=== PATIENT | male | born 1980 | race Caucasian/White ===

== ENCOUNTER 2020-12-21 09:29 | Outpatient (REF) | payer OTHER, SELFPAY ==
[2020-12-21 09:52] LABS: COVID-19 Test Negative (Negative); IDNOW Serial# 55D5AD1C
== END 2020-12-21 09:30 | disposition home or self-care (01) ==
LOC: HO.EMPCOV 09:29
PROVIDERS: Visit Provider Internal Medicine
DX: Z20.822 Contact with and (suspected) exposure to COVID-19 (principal)
CPT/HCPCS: 36415; 87635; C9803

== ENCOUNTER 2021-02-07 10:50 | Outpatient (REF) | payer OTHER, SELFPAY ==
--- NOTE | ~2021-02-07 | XR_ITS ---
EXAMINATION: XR knee standing BI, XR knee LT 2V CLINICAL INFORMATION: Reason for Exam M25.569 - Pain in unspecified knee COMPARISON: No prior studies available for comparison. TECHNIQUE: Bilateral frontal standing, left lateral and patella sunrise view. FINDINGS: BONES: No fracture or dislocation is present. JOINTS: Mild narrowing of joint spaces medially suggest mild DJD. SOFT TISSUE: Normal XR/XR knee standing BI IMPRESSION: Mild degenerative osteoarthritis. No joint effusion.
--- NOTE | ~2021-02-07 | XR_ITS ---
EXAMINATION: XR knee standing BI, XR knee LT 2V CLINICAL INFORMATION: Reason for Exam M25.569 - Pain in unspecified knee COMPARISON: No prior studies available for comparison. TECHNIQUE: Bilateral frontal standing, left lateral and patella sunrise view. FINDINGS: BONES: No fracture or dislocation is present. JOINTS: Mild narrowing of joint spaces medially suggest mild DJD. SOFT TISSUE: Normal XR/XR knee LT 2V IMPRESSION: Mild degenerative osteoarthritis. No joint effusion.
== END 2021-02-07 10:51 | disposition home or self-care (01) ==
LOC: HO.HOSX 10:50
PROVIDERS: Visit Provider Orthopaedic Surgery
DX: M23.92 Unspecified internal derangement of left knee (principal)
CPT/HCPCS: 73560; 73565; 99202

== ENCOUNTER 2021-02-13 12:42 | Outpatient (REF) | payer OTHER, SELFPAY ==
--- NOTE | ~2021-02-13 | MR_ITS ---
EXAMINATION: MR KNEE WITHOUT CONTRAST, LEFT CLINICAL INFORMATION: Left knee pain. COMPARISON: Radiographs 02/07/2021. TECHNIQUE: MRI of the knee without contrast was performed using routine sequences on a high-field scanner. FINDINGS: MENISCI: Medial Meniscus: Small oblique undersurface tear at the junction of the body and posterior horn with prominent intrameniscal fluid extending peripherally. Lateral Meniscus: Minimal inner margin blunting/fraying at the junction of the body and posterior horn. LIGAMENTS: Cruciate: Intact. Collateral: Intact. EXTENSOR MECHANISM: Intact. ARTICULAR CARTILAGE/BONE: Patellofemoral Compartment: Cartilage thinning and surface irregularity throughout the central trochlea. Medial Compartment: Peripheral cartilage thinning of the tibia medially. Lateral Compartment: Mild cartilage thinning and irregularity of the posterior non-weightbearing femoral condyle. JOINT FLUID AND BURSAE: No significant joint effusion. MR/MR knee LT wo con IMPRESSION: Minimal inner margin blunting/fraying of the lateral meniscus at the junction of the body and posterior horn. Small oblique undersurface tear of the medial meniscus at the junction of the body and posterior horn with prominent intrameniscal fluid extending peripherally. Mild tricompartmental osteoarthritis.
== END 2021-02-13 12:43 | disposition home or self-care (01) ==
LOC: HO.MRI 12:42
PROVIDERS: Visit Provider Orthopaedic Surgery
DX: M23.92 Unspecified internal derangement of left knee (principal)
CPT/HCPCS: 73721

== ENCOUNTER → 2021-02-21 08:30 | Outpatient (BNVA) | payer OTHER, SELFPAY | PROVIDERS: PCP Internal Medicine; Visit Provider Orthopaedic Surgery ==

== ENCOUNTER 2021-03-06 06:12 | Day surgery (SDC) | payer OTHER, SELFPAY ==
[2021-02-28 10:17] VITALS: BMI 26.6
--- NOTE | 2021-03-05 08:48 | P.CONAN_ITS ---
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 Allergies Allergy/AdvReac Type Severity Reaction Status Date / Time SEASONAL ALLERGIES Allergy Intermediate SNEEZING, Uncoded 02/28/21 10:15 STUFFY NOSE Home Medications Medication Instructions Recorded Confirmed Last Taken Type fluticasone propionate 50 1 spray INTRANASAL DAILY 02/07/21 02/28/21 03/06/21 05:15 History mcg/actuation nasal spray,suspension Exam Exam Date and Time: March 05, 2021 0848 Height,Weight and Vital Signs: Height 5 ft 9 in Weight 81.647 kg Assessment and Plan Assessment Anesthesia Assessment: Chart Reviewed Documented by User: Taina Traylor 03/06/21 07:52 [facility] Past Medical History Medical History Internal derangement of left knee Surgical History Surgical History H/O left knee surgery Hx of wisdom tooth extraction Jaw fracture Social History Social History Advance Directives Information Provided: No Current occupational status: employed 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 Allergies Allergy/AdvReac Type Severity Reaction Status Date / Time SEASONAL ALLERGIES Allergy Intermediate SNEEZING, Uncoded 02/28/21 10:15 STUFFY NOSE Home Medications Medication Instructions Recorded Confirmed Last Taken Type fluticasone propionate 50 1 spray INTRANASAL DAILY 02/07/21 02/28/21 03/06/21 05:15 History mcg/actuation nasal spray,suspension Exam Airway Mallampati Class: II TM Dist: >3cm Neck ROM: Full Loose/Missing/Broken Teeth: No Heart: RRR Lungs: CTA Assessment and Plan Assessment Anesthesia Assessment: Anesthesia Plan Discussed and Chart Reviewed Final Anesthetic Review NPO: Yes ASA Class: II Final Preanesthetic Review: Meds/Allgs Chart Reviewed, Consent Obtained/Reviewed and Anes Risks/Benef Reviewed Patient Risk: Low Procedure Risk: Low Anesthetic Plan Anesthetic Plan: GA Disposition: Standard PACU
[2021-03-06] VITALS (12 sets, daily range): BP systolic 110–126; BP diastolic 67–80; PULSE 60–84; RESP 16–18; TEMP 36.6; O2SAT 95–100
[2021-03-06] MEDS: Lactated Ringers 1,000 ML 100 ML IVCONT (06:45)
--- NOTE | 2021-03-06 07:29 | MHC.SHP ---
Pre-Procedural Eval Section A The patient is an INPATIENT: No Changes since office visit: Yes Patient answered all questions; No Cold of Flu in the past 2 weeks, No New Medical Problems and No Changes in Medication The History & Physical has been completed within 30 days and I have reviewed it.: Yes Section B Chief Complaint: internal derangement of left knee Allergies: Allergies Allergy/AdvReac Type Severity Reaction Status Date / Time SEASONAL ALLERGIES Allergy Intermediate SNEEZING, Uncoded 02/28/21 10:15 STUFFY NOSE Plan I have reviewed the history and physical and performed a pertinent physical examination on my patient. No changes have occurred unless specified.
--- NOTE | 2021-03-06 08:35 | P.OP_ITS ---
Operative Note Operative Note Date of Service: 03/06/21 Narrative: Date of Service: 03/06/21 Pre-op diagnosis: right knee medial meniscus tear Post-op diagnosis: same Procedure: right knee partial medial meniscectomy Implants: none Surgeon: Subhash Grant MD Anesthesia: GETA Was an Field Assembly Supervisor used for this Procedure?: No Estimated blood loss (mL): 5 IV fluids (mL): 600 Pathology: none sent Condition: stable Disposition: PACU Procedure in detail: Patient was brought to the operating room placed supine on the arthroscopic table and prepped and draped in standard sterile fashion. A time-out was called to identify proper site proper procedure proper surgeon and IV antibiotics per weight were administered. I began by exsanguinating the limb and insufflating tourniquet to 300 mm Hg. Then made a standard anterolateral stab incision. The knee was insufflated with saline and a 30 degree arthroscope was placed. There was grade 1 changes to the medial patelalr facet with clean suprapatellar pouch and the gutters were clean. There was a central trochlear full thickness catilag e leasion extending about 1.5 cm anterior to posterio and 5 mm wice. There was no associated kissing lesion. I descended into the medial compartment where I made my medial portal under direct visualization. There was as radial complex tear of the posterior horn of the medial meniscus. Root was intact and there were no cartilage lesions. I used a combination of biter and shaver and cautery to remove unstable portions of the meniscus. Approximately 25% meniscal volume was removed. Once I was happy with this the ACL was examined and found to be intact and the lateral compartment also was without the need for intervention. There was no evidence of meniscal damage. I then removed all instrumentation and closed the portals with skin glue. 25 mL of 2% Marcaine with epinephrine was injected into the joint and the surrounding soft tissues. Patient was then placed in sterile dressing extubated brought recovery room stable condition. There were no known complications.
[2021-03-06] MEDS: Acetaminophen 325 MG TABLET 650 MG PO (09:06)
[2021-03-06] MEDS: fentaNYL citrate/PF 100 MCG/2 ML VIAL 25 MCG IVPUSH ×4 (09:08→09:23)
[2021-03-06] MEDS: HYDROcodone Bit/Acetam 5/325 TABLET 1 TAB PO (09:19)
== END 2021-03-06 10:50 | disposition home or self-care (01) ==
PROVIDERS: Visit Provider Orthopaedic Surgery
PROC: (CPT 29870; principal; 2021-03-06 07:30)
DX: S83.231A Complex tear of medial meniscus, current injury, right knee, initial encounter (principal); X58.XXXA Exposure to other specified factors, initial encounter; Y93.9 Activity, unspecified; Y92.9 Unspecified place or not applicable; Y99.8 Other external cause status; J30.2 Other seasonal allergic rhinitis; Z79.51 Long term (current) use of inhaled steroids
CPT/HCPCS: 29881; J0171; J0690; J1100; J1885; J2250; J2405; J3010

== ENCOUNTER → 2021-03-18 08:44 | Outpatient (BNVA) | payer OTHER, SELFPAY | PROVIDERS: Visit Provider Physician Assistant ==

== ENCOUNTER 2021-05-16 16:00 | Outpatient (RCR) | payer OTHER, SELFPAY ==
--- NOTE | 2021-03-21 14:55 | MHC.PT.EP ---
[facility] [place] Office [place] Office [place] Office [address] Carolann Herring [address] [phone] F: [phone] F: [phone] F: [phone] F: [phone] Physical Therapy Plan of Care Date of Evaluation: Date of Surgery: 03/06/21 Diagnosis: L partial medial meniscectomy on 03/06 Assessment: pt presents to physical therapy status-post partial medial meniscectomy. pt presents to physical therapy with pain, decreased range of motion, decreased strength, impaired functional mobility, impaired postural awareness, and gait deviations. pt is a good candidate for skilled PT due to age, potential remediation of impairments, typical disease/condition progression and prognosis, comorbidities, and motivation. pt would benefit from tailored strengthening and stretching exercise program, functional training, gait training, postural re-training, neuromuscular re-education, modalities as needed for pain, equipment safety demonstration. Frequency and Duration: The patient will be seen 2x/wk for 6 wks Short Term Goals: pt will be I w/ HEP to promote self-management of condition. pt will improve L knee flexion to 120 degrees to normalize gait pattern on even ground. Sugarcane Research Technician Goals: pt will report a statistically significant improvement in self-reported outcome measure, LEFI, to promote return to PLOF. pt will report <1/10 L knee pain w/ ambulation on even ground w/ LRAD >2500' to promote full return to community ambulation. Treatment Plan: Modalities to reduce pain, spasms and effusion. Manual therapy to restore motion and function. Therapeutic exercise to improve strength and flexibility. Neuromuscular re-education for posture and balance. Therapeutic activities to return to functional activities of daily living. Electronically signed by: Naty Kumari PT, DPT Please sign and return to therapist. Thank you for your referral.
--- NOTE | 2021-05-16 17:07 | MHC.PT.DC ---
[facility] [place] Office [place] Office [place] Office [address] Carolann Herring [address] [facility] [phone] F: [phone] F: [phone] F: [phone] F: [phone] Physical Therapy Discharge Report Diagnosis: L partial medial meniscectomy on 03/06 Date of Surgery: 03/06/21 Date of Evaluation: 03/21/21 Date of Discharge: 05/16/21 Treatments to Date: 13 Cancellations to Date: 0 No Shows to Date: 0 Discharge Status: Achieved Goals Independent with HEP Discharge Summary: The patient overall reports reduced frequency and intensity of knee pain. He has improved significantly in his ability to tolerate higher level dynamic lower extremity strengthening. He has achieved all goals established at the initial evaluation. The patient is independent with his home exercise program. He is discharged from this physical therapy plan of care to his home exercise program. Electronically signed by: Naty Kumari PT, DPT Please sign and return to therapist. Thank you for your referral.
== END 2021-05-16 17:07 | disposition home or self-care (01) ==
LOC: HO.PT 16:00
PROVIDERS: PCP Internal Medicine; Visit Provider Physician Assistant
DX: M23.92 Unspecified internal derangement of left knee (principal); Z98.890 Other specified postprocedural states
CPT/HCPCS: 97035; 97110; 97112; 97140; 97161; 97530

== ENCOUNTER 2024-06-01 09:53 | Outpatient (AMB) | payer OTHER, SELFPAY ==
[2024-06-01 09:56] VITALS: BP 122/68; PULSE 70; BMI 26.7
--- NOTE | 2024-06-01 09:56 | MHC.OFFVIS ---
Vital Signs 06/01/24 09:56 Height 5 ft 9 in Weight 180 lb 12.465 oz BMI 26.7 BP 122/68 Blood Pressure Location Lt brachial Position Sitting Pulse 70 Intake Visit Reasons: [employer]NA[employer]/Dr. 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 He is a 43-year-old male who used to be in at [employer] in his high school and college years. More recently due to knee issues he has not been as active as before. Although he said he continues to participate in monitoring biking after physical therapy. He has been only recently during this spring he started noticing on his smart watch that his heart rate responses pretty excessive to exercise. He said he would very rapidly go high and then he had would take a longer time for him to recover. He said when he was in good shape is resting heart rate used to be in the 50s. Currently is resting heart rate is in his 70s. He denies any actual symptoms with it. Denies any exertional chest pain or shortness of breath. Denies any lightheadedness, syncope. Denies any heart failure symptoms. He said occasionally when he is stressed out and anxious at rest his heart rate also races. [facility] Medical History Internal derangement of left knee Surgical History Hx of wisdom tooth extraction H/O left knee surgery Jaw fracture Family History Father No problems noted. 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 [employer] Review of Systems Const Denies chills, Denies daytime sleepiness, Denies fatigue, Denies fever(s), Denies frequent falls, Denies poor appetite, Denies snoring, Denies stops breathing during sleep, Denies weakness, Denies weight gain and Denies weight loss Eyes Denies loss of vision ENT Denies dizziness and Denies hearing loss Card Denies chest pain, Denies claudication, Denies leg edema, Denies lightheadedness, Denies palpitations, Denies dyspnea, Denies dyspnea on exertion and Denies orthopnea Resp Denies cough, Denies excessive phlegm production, Denies dyspnea, Denies dyspnea on exertion, Denies snoring and Denies wheezing GI Denies abdominal pain, Denies hematochezia, Denies change in bowel habits, Denies nausea and Denies vomiting Denies dysuria and Denies urinary frequency Musc Denies arthralgias, Denies muscle weakness, Denies numbness and Denies other (frequent falls) Skin/Breast Denies nail changes and Denies rash Neuro Denies Abnormal speech present, Denies dizziness, Denies frequent falls, Denies loss of vision, Denies memory loss, Denies numbness and Denies weakness Psych Denies depression and Denies memory loss Endo Denies fatigue and Denies palpitations Gabino/Lymph Reports easy bruising and Reports other (anemia) Aller/Immun Denies wheezing Physical Exam Vital Signs: Last Vital Signs Pulse 70 06/01/24 09:56 BP 122/68 06/01/24 09:56 BMI result Body Mass Index 26.7 Const General: cooperative, comfortable, no acute distress, alert, awake, Physically active and well groomed Nutritional Appearance: average body habitus Orientation/consciousness: patient oriented x3 Limitations: no limitations HEENT Head: Yes normocephalic and Yes atraumatic Neck Neck: Yes trachea midline, Yes supple and Yes no JVD Resp Effort & Inspection: normal respiratory effort Auscultation: clear to auscultation bilaterally Cardio Jugular venous distension: no JVD Palpation: normal PMI Rate: regular rate Rhythm: regular rhythm Heart sounds: S1 normal heart sound present, S2 normal heart sound present, no click, no gallops, no murmurs and no rubs GI Auscultation: normal bowel sounds Skin General skin exam: no rashes or lesions noted Neuro General: patient oriented x3 and no focal motor deficits Speech: No Abnormal speech present Extrem General: Yes no clubbing, cyanosis or edema Office Procedures EKG Details: EKG shows normal sinus rhythm with sinus arrhythmia with minimal voltage criteria for LVH overall normal EKG [id number], Complete Assessment & Plan Assessment & Plan (1) Tachycardia: Code(s): R00.0 - Tachycardia, unspecified Category: Medical Plan: Patient with excessive heart rate response to exercise and prolonged recovery time without any obvious cardiac symptoms. Possible etiologies include deconditioning with impaired vagal tone, relative hypovolemia with reduced oral fluid intake or case of mild autonomic dysfunction with either inappropriate sinus tachycardia and/or a component of postural orthostatic tachycardia syndrome. Currently has no symptoms of lightheadedness at this point time. I would suggest a Holter monitor as well as echocardiogram to further assess for any structural abnormality and overall evaluate heart rate response throughout the day. We discussed in details about participating in gradually increasing cardiovascular witnessed to improve his heart rate response to exercise and also improve his vagal tone and heart rate recovery time. This was discussed in details. He understands agrees. Also advised him to aggressively hydrate every day to maintain adequate heart rate response. Will follow up in the clinic if need be. Thank you for allowing me to partake in his care Orders: Orders CA echo transthoracic complete Today R00.0 - Tachycardia, unspecified ECG 3 day holter monitor Today R00.0 - Tachycardia, unspecified Coding Level of Care Code New Pt Level 4 (36732) Diagnoses Tachycardia R00.0 CPT Codes EKG - CPT: 60663-[id number], Complete ([id number])
== END 2024-06-01 10:30 | disposition home or self-care (01) ==
PROVIDERS: PCP Internal Medicine; Visit Provider Internal Medicine Cardiovascular Disease
DX: R00.0 Tachycardia, unspecified (principal)
CPT/HCPCS: 93010; 99204

== ENCOUNTER → 2024-06-01 09:53 | Outpatient (BNVA) | payer OTHER, SELFPAY | PROVIDERS: PCP Internal Medicine; Visit Provider Internal Medicine Cardiovascular Disease | DX: R00.0 Tachycardia, unspecified (principal) | CPT/HCPCS: 93005 ==

== ENCOUNTER → 2024-07-18 10:00 | Outpatient (REF) | payer OTHER, SELFPAY ==
--- NOTE | 2024-07-18 10:06 | HM_ITS ---
* Total monitoring time 3 days. * Underlying rhythm is sinus with an average rate of 74/Min. * Rare supraventricular and one isolated ventricular ectopic beat. * No significant pauses or AV blocks. * Patient marker used once in association with sinus rhythm. * Rapid/fast heartbeat in patient diary correlates with sinus rhythm. MTDD
--- NOTE | 2024-07-18 10:06 | CA_ITS ---
Transthoracic Echocardiogram Patient (Last, First, Middle): Axel Sheets J Gender: Male Date of : 1980 Age: 43 Procedure Date: 07/18/2024 Procedure Type: Transthoracic Echocardiogram Location: OP Height: 175.26 cm Weight: 83.46 kg BSA: 1.99 m2 Heart Rate: bpm BP: 124 / 80 mmHg Spring Tacker: JOY Referring MD: Rm Kirk MD Director [employer]: Rm Kirk MD Symptoms: R00.0 - Tachycardia, unspecified Study Quality: Adequate ECG Rhythm: Sinus Conclusions: - Essentially normal study Findings Left Ventricle Normal left ventricular size, thickness, and systolic function. The visually estimated ejection fraction is between 60-65%. Spectral Doppler is indicative of a normal filling pattern. Right Ventricle Normal right ventricular cavity size and systolic function. Atria Both atria are normal in size. There is lipomatous hypertrophy of the interatrial septum. There is no evidence of interatrial shunt. Aortic Valve Normal aortic valve structure and function. There is no aortic valve stenosis. There is no aortic valve regurgitation. Mitral Valve Normal mitral valve structure and function. There is trace mitral valve regurgitation. There is no mitral valve stenosis. Pulmonic Valve The pulmonic valve is likely normal. Tricuspid Valve Normal tricuspid valve structure. There is trace tricuspid valve regurgitation. The right ventricular systolic pressure is normal. The right ventricular systolic pressure is 19 mmHg. Normal right atrial pressure. There is no evidence of pulmonary hypertension. Great Vessels All visible segments of the aorta are normal in size. The pulmonary artery was not well visualized. There is no dilatation of the ascending aorta measuring 2.70 cm. Venous The inferior vena cava is normal in size and collapses greater than 50% with inspiration. Pericardium/Pleural There is no evidence of pericardial effusion. Prior Study Comparison No prior study available for comparison. Measurements 2D Linear Measurements IVSd: 0.78 0.6-0.9/0.6-1.0 cm LVIDd: 4.56 3.9-5.3/4.2-5.9 cm LVIDd Index: 2.29 2.4-3.2/2.2-3.1 cm/m2 LVIDs: 3.05 2.0-3.6 cm LVPWd: 0.79 0.7-1.1 cm Ao Root: 2.50 2.1-3.5 cm LA Diam: 3.60 2.7-3.8/3.0-4.0 cm LAIDs Index: 1.81 1.5-2.3 cm/m2 LV Mass: 140.48 67-162/88-224 g LV Mass Index: 70.59 43-95/49-115 g/m2 LVOT Diam: 2.00 3.0+(-)1.3 cm Mitral Valve MV Pk E: 0.66 MV PK A: 0.48 MV Decel Time: 206.00 E/A: 1.40 E'Lateral: 13.60 E'Medial: 10.90 E/E' Med: 6.00 E/E' Lat: 4.80 PHT: 60.00 MVA PHT: 3.67 Decel Harmon: 3.18 Aortic Valve AoV Pk Mario: 1.12 AoV Mn Mario: 0.78 AoV VTI: 0.27 AoV Pk Grad: 5.00 Aov Mn Grad: 3.00 KRISTA Cont.VTI: 2.41 LVOT LVOT Pk Mario: 0.94 LVOT Mn Mario: 0.61 LVOT VTI: 0.21 LVOT Pk Grad: 4.00 LVOT Mn Grad: 2.00 LVOT Diam: 2.00 LVOT Area: 3.14 Diastolic Function MV Pk E: 0.66 MV Pk A: 0.48 E/A: 1.40 E'Medial: 10.90 E/E' Med: 6.00 E' Laterial: 13.60 E/E' Lat: 4.80 Tricuspid Valve TR Pk Mario: 1.58 TR Pk Grad: 10.00 RA Press: 3.00 RVSP: 19.00 Great Vessels Aorta Ao Root-2D: 2.50 2.0-3.7 cm Ao Asc: 2.70 2.1-3.4 cm Pulmonary Valve PV Pk Mario: 1.17 Peak PV Grad: 5.00 Updated in Other Vendor System with Status of Final Rm Kirk MD electronically signed on 07/19/2024 8:51:32 AM with status of Final
== END ==
LOC: HO.CARD 10:00
PROVIDERS: PCP Internal Medicine; Visit Provider Internal Medicine Cardiovascular Disease
DX: I47.10 Supraventricular tachycardia, unspecified (principal)
CPT/HCPCS: 93242; 93306

== ENCOUNTER → 2024-07-18 10:06 | Outpatient (BNV) | payer OTHER, SELFPAY | PROVIDERS: PCP Internal Medicine; Visit Provider Internal Medicine Cardiovascular Disease | DX: I47.10 Supraventricular tachycardia, unspecified (principal) | CPT/HCPCS: 93244; 93306 ==

== ENCOUNTER 2024-12-16 08:44 | Outpatient (REF) | payer OTHER, SELFPAY ==
[2024-12-16 09:16] LABS: MANUAL DIFF FLAG NO
[2024-12-16 09:44] LABS: Basophils Absolute Auto 0.1 X10*3/uL (0.0-0.2); Basophils Percent Auto 1.1 % (0-2); Eosinophils Absolute Auto 0.1 X10*3/uL (0.0-0.4); Eosinophils Percent Auto 1.3 % (0-4); Hematocrit 41.2 % (42.0-52.0); Hemoglobin 14.4 g/dl (14.0-18.0); Imm Gran Abs Auto 0.03 X10*3/uL (0.00-0.03); Imm Gran Pct Auto 0.6 % (0.0-0.4); Lymphocytes Absolute Auto 0.9 X10*3/uL (1.2-4.9); Lymphocytes Percent Auto 20.1 % (20-40); Mean Corpuscular Hemoglobin 30.2 pg (27.0-33.0); Mean Corpuscular Volume 86.4 fL (80.0-98.0); Mean Platelet Volume 10.7 fL (9.4-12.4); Monocytes Absolute Auto 0.5 X10*3/uL (0.1-1.2); Monocytes Percent Auto 10.2 % (2-11); Neutrophils Absolute Auto 3.1 x10*3/uL (2.0-8.3); Neutrophils Percent Auto 66.7 % (45-73); Platelet Count 158 X10*3/uL (160-400); Red Blood Count 4.77 X10*6/uL (4.60-5.80); Red Cell Distribution Width 13.2 % (11.0-16.0); White Blood Count 4.6 X10*3/uL (4.8-10.8)
[2024-12-16 10:14] LABS: C Reactive Protein 0.53 mg/dL (< or = 0.50)
[2024-12-16 10:16] LABS: Erythrocyte Sedimentation Rate 6 MM/HR (0-15)
[2024-12-16 10:20] LABS: Rheumatoid Factor < 13.0 IU/mL (<15.0)
[2024-12-20 13:54] LABS: Anti Nuclear Antibody Screen NEGATIVE (NEGATIVE)
[2024-12-20 15:28] LABS: Cyclic Citrullinated Peptide <16 UNITS
[2024-12-23 00:29] LABS: Parvovirus B19 IgG 3.83; Parvovirus B19 IgM 24.06
== END 2024-12-16 08:45 | disposition home or self-care (01) ==
LOC: HO.LAB 08:44
PROVIDERS: PCP Internal Medicine; Visit Provider Internal Medicine
DX: M25.50 Pain in unspecified joint (principal); R53.83 Other fatigue
CPT/HCPCS: 36415; 85025; 85652; 86038; 86140; 86200; 86431; 86747

== ENCOUNTER 2025-03-10 08:32 | Outpatient (REF) | payer OTHER, SELFPAY ==
[2025-03-10 09:28] LABS: Cholesterol 206 mg/dL (<200); Glucose Fasting 92 mg/dL (60-99); HDL Cholesterol 44 mg/dL (>40); LDL Cholesterol Calculated 149 mg/dL (<100); Triglycerides 67 mg/dL (<150)
== END 2025-03-10 08:33 | disposition home or self-care (01) ==
LOC: HO.LAB 08:32
PROVIDERS: PCP Internal Medicine; Visit Provider Internal Medicine
DX: Z13.6 Encounter for screening for cardiovascular disorders (principal); Z13.1 Encounter for screening for diabetes mellitus
CPT/HCPCS: 36415; 80061; 82947

== ENCOUNTER 2025-05-10 10:51 | Outpatient (AMB) | payer OTHER, SELFPAY ==
--- NOTE | 2025-05-10 11:02 | A.OFFVIS_ITS ---
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 PCP recommended that he try Voltaren gel, which she is using. Triggering is occurring daily. He denies history of diabetes or liver disease. He reports he has hypoglycemia. Acute pain in R wrist with gripping started a year ago. Self limited. He was diagnosed with de Quervain tenosynovitis and given her thumb spica splint, which he wears at night. Hx paravovirus in December 2024. 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 He had pain in his wrists, hands , ankles and feet. He was treated with 50 days of nabumatone with benefit. Resolved. 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 Medical history and social history reviewed in expanse with patient. Medication list reviewed. Mother had rheumatoid arthritis and fibromyalgia. 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 [facility] Medical History Internal derangement of left knee Surgical History Hx of wisdom tooth extraction H/O left knee surgery Jaw fracture Family History Father No problems noted. 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 No synovitis. He has slight squaring of left CMC. No tenderness of CMCs. No tenderness along the 1st extensor compartments of bilateral wrists. Triggering of right 3rd middle finger observed. No nodule palpated in the palmar aspect of MCPs. 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 Normal range of motion of upper extremities and lower extremities. Results Reviewed Results Reviewed: Labs in expanse reviewed from December 2024 Assessment & Plan Assessment & Plan (1) Acquired trigger finger of both middle fingers: Comment: Discussed conservative management Code(s): M65.331 - Trigger finger, right middle finger; M65.332 - Trigger finger, left middle finger Category: Medical Plan: OT referral with splinting at night X-ray bilateral hands ordered Return to clinic in 3 months. 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 is contributing Code(s): M25.531 - Pain in right wrist Category: Medical Plan: X-ray left hand ordered Wear thumb spica splint during the day, especially when he is utilizing his hands for chores/projects OT Return to clinic in 3 months Orders: Orders OT Evaluation and Treatment Today M25.531 - Pain in right wrist, M65.331 - Trigger finger, right middle finger, M65.332 - Trigger finger, left middle finger XR Hand Kevin 2V Today M25.531 - Pain in right wrist, M65.331 - Trigger finger, right middle finger, M65.332 - Trigger finger, left middle finger XR wrist LT 2V Today M25.531 - Pain in right wrist Coding Level of Care Code New Pt Level 4 (82786) Complex EM visit Add On G2211 Diagnoses Acquired trigger finger of both middle fingers M65.331; M65.332 Right wrist pain M25.531
[2025-05-10 11:05] VITALS: BP 120/72; PULSE 63; O2SAT 99; BMI 26.7
== END 2025-05-10 12:43 | disposition home or self-care (01) ==
LOC: HO.RHES 10:52
PROVIDERS: PCP Internal Medicine; Visit Provider Internal Medicine Rheumatology
DX: M65.331 Trigger finger, right middle finger (principal); M65.332 Trigger finger, left middle finger; M25.531 Pain in right wrist
CPT/HCPCS: 99204

== ENCOUNTER 2025-06-16 13:02 | Outpatient (RCR) | payer OTHER, SELFPAY | END 2025-07-12 15:15 | disposition home or self-care (01) | LOC: HO.OT 13:02 | PROVIDERS: PCP Internal Medicine; Visit Provider Internal Medicine Rheumatology | DX: M65.331 Trigger finger, right middle finger (principal); M65.332 Trigger finger, left middle finger; M25.531 Pain in right wrist | CPT/HCPCS: 97035; 97110; 97140; 97165 ==

== ENCOUNTER 2025-06-16 13:35 | Outpatient (REF) | payer OTHER, SELFPAY ==
--- NOTE | ~2025-06-16 | XR_ITS ---
CLINICAL HISTORY: M25.531 - Pain in left wrist --- Additional Notes or Special Instructions: right cmc pain and bilateral trigger fingers 3 view bilateral hand Comparison: None provided Findings: No fractures or dislocations. No significant loss of joint space or osteophytes. Articular surfaces are maintained. No erosions. No radiopaque foreign body. IMPRESSION: 1. No acute findings This document has been electronically signed by: Ernesto Carcamo MD on 06/17/2025 09:23:06
--- NOTE | ~2025-06-16 | XR_ITS ---
CLINICAL HISTORY: M25.531 - Pain in left wrist --- Additional Notes or Special Instructions: Left radial wrist pain 4 view left wrist Comparison: None provided Findings: No fractures or dislocations. No significant arthritic change or erosions. No radiopaque foreign body. IMPRESSION: No acute process or significant arthritic changes. This document has been electronically signed by: Alyx Moody DO on 06/16/2025 16:08:43
== END 2025-06-16 13:36 | disposition home or self-care (01) ==
LOC: HO.XRAY 13:35
PROVIDERS: PCP Internal Medicine; Visit Provider Internal Medicine Rheumatology
DX: M25.531 Pain in right wrist (principal); M25.532 Pain in left wrist; M65.331 Trigger finger, right middle finger; M65.332 Trigger finger, left middle finger
CPT/HCPCS: 73110; 73130

== ENCOUNTER → 2025-06-16 13:39 | Outpatient (BNV) | payer OTHER, SELFPAY | PROVIDERS: PCP Internal Medicine; Visit Provider Radiology Diagnostic Radiology | DX: M25.532 Pain in left wrist (principal) | CPT/HCPCS: 73110; 73130 ==